=== PATIENT | male | born 1965 | race Native Hawaiian/Other Pacific Islander ===

== ENCOUNTER 2018-06-11 09:35 | Outpatient (CLI) | payer OTHER ==
[2018-06-11 10:52] LABS: Basophils # (Auto) 0.1 K/mm3 (0.0-0.1); Basophils % (Auto) 1.1 % (0.0-1.8); Eosinophils # (Auto) 0.2 K/mm3 (0.0-0.4); Eosinophils % (Auto) 3.2 % (0.0-4.3); Hematocrit 42.1 % (35.5-45.6); Hemoglobin 14.2 gm/dl (11.8-15.2); Lymphocytes # (Auto) 1.7 K/mm3 (1.2-5.4); Lymphocytes % (Auto) 23.6 % (13.4-35.0); Mean Corpuscular HGB Conc 34 % (32-34); Mean Corpuscular Volume 90 fl (84-94); Monocytes # (Auto) 0.5 K/mm3 (0.0-0.8); Monocytes % (Auto) 6.5 % (0.0-7.3); Platelet Count 237 K/mm3 (140-440); Red Cell Distribution Width 12.6 % (13.2-15.2)
[2018-06-11 11:17] LABS: Alanine Aminotransferase 34 units/L (7-56); Albumin 4.9 g/dL (3.9-5); BUN/Creatinine Ratio 16; Blood Urea Nitrogen 13 mg/dL (9-20); Calcium 9.7 mg/dL (8.4-10.2); Chol/HDL Ratio 5.18 %; HDL Cholesterol 37 mg/dL (40-59); Hemolysis Index 6; LDL Cholesterol,Direct 138 mg/dL (50-130)
[2018-06-11 11:29] LABS: Hepatitis B Surface Antigen Non-Reactive (Negative); Hepatitis C Virus Antibody Non-Reactive (NonReactive)
== END 2018-06-11 09:36 | disposition home or self-care (01) ==
LOC: LAB 09:35
PROVIDERS: ATTEND Internal Medicine
DX: I10 Essential (primary) hypertension (principal); E78.00 Pure hypercholesterolemia, unspecified; E89.0 Postprocedural hypothyroidism; K29.70 Gastritis, unspecified, without bleeding
CPT/HCPCS: 36415; 80053; 80061; 80074; 82306; 82607; 84443; 85025; 86592

== ENCOUNTER 2018-09-21 11:29 | Outpatient (CLI) | payer OTHER ==
[2018-09-21 13:34] LABS: Chol/HDL Ratio 4.43 %
[2018-09-24 11:19] LABS: Vitamin D, 25-OH, D2 <4 ng/mL
== END 2018-09-21 11:30 | disposition home or self-care (01) ==
LOC: LAB 11:29
PROVIDERS: ATTEND Internal Medicine
DX: Z13.1 Encounter for screening for diabetes mellitus (principal); E55.9 Vitamin D deficiency, unspecified; E78.00 Pure hypercholesterolemia, unspecified; E89.0 Postprocedural hypothyroidism
CPT/HCPCS: 36415; 80061; 82306; 83036; 84443

== ENCOUNTER 2019-02-14 08:39 | Outpatient (CLI) | payer OTHER ==
[2019-02-14 12:40] LABS: Chol/HDL Ratio 4.12 %
== END 2019-02-14 08:40 | disposition home or self-care (01) ==
LOC: LAB 08:39
PROVIDERS: ATTEND Internal Medicine
DX: E78.00 Pure hypercholesterolemia, unspecified (principal); E89.0 Postprocedural hypothyroidism; R73.03 Prediabetes
CPT/HCPCS: 36415; 80061; 83036; 84443